=== PATIENT | female | born 1950 | race Asian ===

== ENCOUNTER → 2016-10-27 | Outpatient (CLI) | payer MEDICARE, OTHER ==
[~2016-10-27] MED LIST: ALLO100T PO; ASPI81 PO; ATOR40TA28 PO; INSLAN SQ; INSNOV SQ; LABE100 PO; LOSA50TA37 PO; OMEP20 PO
== END | disposition home or self-care (01) ==
LOC: RADPV 09:24
PROVIDERS: ATTEND Family Medicine
DX: J98.11 Atelectasis (principal)
CPT/HCPCS: 71020

== ENCOUNTER → 2016-11-02 | Outpatient (CLI) | payer MEDICARE, OTHER ==
[2016-11-02 14:50] LABS: CREATININE 1.35 mg/dL (0.60-1.30); POTASSIUM 3.9 mmol/L (3.5-5.1)
[2016-11-02 15:00] LABS: INR 0.9 (0.9-1.1); PROTHROMBIN TIME 9.8 SEC (9.4-11.6)
== END | disposition home or self-care (01) ==
LOC: LABPV 12:47
PROVIDERS: ATTEND Orthopaedic Surgery
DX: Z01.818 Encounter for other preprocedural examination (principal); S83.242D Other tear of medial meniscus, current injury, left knee, subsequent encounter; R79.1 Abnormal coagulation profile; E11.9 Type 2 diabetes mellitus without complications; X58.XXXD Exposure to other specified factors, subsequent encounter
CPT/HCPCS: 82565; 82947; 84520

== ENCOUNTER → 2016-11-25 | Outpatient (CLI) | payer MEDICARE, OTHER ==
[~2016-11-25] MED LIST changes: +ATROPINE SULFATE 1 MG/ML VIAL IM ONE; +ATROPINE SULFATE 1 MG/ML VIAL IVP ONE; +DOBUTamine HCL/D5W 500 MG/250 ML IV BAG [STRESS LAB ONLY] IV ONE
[2016-11-25 08:30] VITALS: BP 135/74
[2016-11-25 11:10] VITALS: BP 134/85
== END | disposition home or self-care (01) ==
LOC: CARDMN 08:01
PROVIDERS: ATTEND Internal Medicine Interventional Cardiology
DX: Z01.810 Encounter for preprocedural cardiovascular examination (principal); R94.31 Abnormal electrocardiogram [ECG] [EKG]
CPT/HCPCS: 93017; 93350; J0461; J1250

== ENCOUNTER 2017-02-24 02:55 | Emergency (ER) | payer MEDICARE, OTHER ==
[~2017-02-24] VITALS: Ht 160 cm; Wt 86.0 kg
[~2017-02-24 02:55] MED LIST changes: -ATROPINE SULFATE 1 MG/ML VIAL IM ONE; -ATROPINE SULFATE 1 MG/ML VIAL IVP ONE; -DOBUTamine HCL/D5W 500 MG/250 ML IV BAG [STRESS LAB ONLY] IV ONE
[2017-02-24] MEDS ORDERED: MIRALAX PO (03:04)
[2017-02-24] MEDS ORDERED: POTA8TAB4 PO (03:04)
[2017-02-24] MEDS ORDERED: GLIP10 PO (03:04)
[2017-02-24] MEDS ORDERED: OMEP20 PO (03:04)
[2017-02-24] MEDS ORDERED: FURO40 PO (03:04)
[2017-02-24] MEDS ORDERED: HYDR-2924 PO (03:04)
[2017-02-24] MEDS ORDERED: HYDR-309 PO (03:04)
[2017-02-24 03:09] LABS: GLUCOSE,POINT OF CARE 133 MG/DL (70-110)
[2017-02-24 03:29] LABS: BASOPHILS % (AUTO) 0.2 % (0.0-2.0); EOSINOPHILS % (AUTO) 1.7 % (1.0-6.0); HEMATOCRIT 38.4 % (36-46); HEMOGLOBIN 12.6 g/dL (12.0-16.0); LYMPHOCYTES # (AUTO) 9.6 K/uL (1.0-4.8); LYMPHOCYTES % (AUTO) 64.7 % (22.0-44.0); MEAN CORPUSCULAR HEMOGLOBIN 29.5 pg (26.0-34.0); MEAN CORPUSCULAR HGB CONC 32.9 G/dL (31.0-37.0); MEAN CORPUSCULAR VOLUME 90 fL (80-100); MONOCYTES # (AUTO) 0.6 K/uL (0.1-1.0); MONOCYTES % (AUTO) 4.2 % (2.0-9.0); NEUTROPHILS # (AUTO) 4.3 K/uL (1.8-7.7); NEUTROPHILS % (AUTO) 29.2 % (40.0-70.0); PLATELET COUNT (AUTO) 293 K/uL (150-450); RED BLOOD CELL COUNT(AUTO) 4.28 MIL/uL (4.00-5.20); RED CELL DISTRIBUTION WIDTH 15.7 % (11.5-14.5); WHITE BLOOD COUNT (AUTO) 14.8 K/uL (4.5-11.0)
[2017-02-24 03:40] LABS: ANION GAP 10 mmol/L (8-16); CALCIUM, TOTAL 9.4 mg/dL (8.8-10.5); CARBON DIOXIDE 28 mmol/L (22-29); CHLORIDE 103 mmol/L (98-107); CREATININE 1.15 mg/dL (0.60-1.30); GLOMERULAR FILTR. RATE CALC 48 mL/min (>60); POTASSIUM 3.3 mmol/L (3.5-5.1); SODIUM SERUM 141 mmol/L (136-145); UREA NITROGEN, BLOOD 26 mg/dL (7-18)
[2017-02-24 03:46] LABS: ALANINE AMINOTRANSFERASE 49 U/L (12-78); ALBUMIN 3.7 g/dL (3.4-5.0); ASPARTATE AMINOTRANSFERASE 26 U/L (15-37); BILIRUBIN,TOTAL 0.4 mg/dL (0.1-1.0); CREATINE KINASE, TOTAL 65 U/L (26-192); TOTAL PROTEIN, SERUM 7.4 g/dL (6.4-8.2)
[2017-02-24 03:56] LABS: B-TYPE NATRIURETIC PEPTIDE 17 pg/mL (0-100)
[2017-02-24] MEDS ORDERED: ONDANSETRON HCL 4 MG/2 ML VIAL IVP ONE ×2 (04:00→05:45)
[2017-02-24] MEDS ORDERED: MECLIZINE HCL 25 MG TABLET PO ONE (04:00)
[2017-02-24] MEDS ORDERED: LABETALOL HCL 200 MG TABLET PO ONE (05:45)
[2017-02-24] MEDS ORDERED: POTASSIUM CHLORIDE 20 MEQ ER TABLET PO ONE (05:45)
[2017-02-24] MEDS ORDERED: HydrALAZINE HCL 25 MG TABLET PO ONE (05:45)
[2017-02-24] MEDS ORDERED: LOSARTAN POTASSIUM 50 MG TABLET PO ONE (05:45)
[2017-02-24] MEDS ORDERED: SODIUM CHLORIDE 0.9% 1,000 ML IV ONE (05:45)
[2017-02-24 06:22] LABS: APPEARANCE,URINE CLEAR (CLEAR); GLUCOSE, URINE (UA) NEGATIVE (NEGATIVE); KETONES,URINE NEGATIVE (NEGATIVE); LEUKOCYTE ESTERASE ,URINE NEGATIVE (NEGATIVE); OCCULT BLOOD,URINE NEGATIVE (NEGATIVE); PH,URINE 6.5 (5.0-8.0); PROTEIN,URINE POS 1+ (NEGATIVE)
[2017-02-24 06:23] LABS: ADD UA MICROSCOPIC NO
[2017-02-24 08:24] VITALS: BP 169/87
[2017-02-24 08:25] LABS: GLUCOSE,POINT OF CARE 137 MG/DL (70-110)
== END 2017-02-24 08:51 | disposition home or self-care (01) ==
LOC: EMS 02:56
DX: R42 Dizziness and giddiness (principal); L27.2 Dermatitis due to ingested food; R11.2 Nausea with vomiting, unspecified; E11.9 Type 2 diabetes mellitus without complications; K21.9 Gastro-esophageal reflux disease without esophagitis; E78.00 Pure hypercholesterolemia, unspecified; I10 Essential (primary) hypertension; Z79.4 Long term (current) use of insulin; Z79.82 Long term (current) use of aspirin
CPT/HCPCS: 36415; 80053; 81003; 82550; 82962; 83880; 84484; 85025; 93005; 96360; 96374; 96375; 99285; J2405; 96361